=== PATIENT | male | born 2000 | race Caucasian/White ===

== ENCOUNTER 2024-09-13 19:49 | Emergency (ER) | payer OTHER, SELFPAY ==
[2024-09-13 19:51] VITALS: BP 139/80
[2024-09-13 20:25] VITALS: BMI 32.9
--- NOTE | 2024-09-13 20:47 | ED.GENMED ---
History of Present Illness
General
Chief Complaint: Back Pain
Source: patient
Exam Limitations: none
Time Seen by Provider: 09/13/24 20:26
Nursing documentation reviewed up to this point in time: agreed with
History of Present Illness
History of Present Illness:
Patient to ED [facility] complaint of low back pain. Has had pain off and on since 2020. States last week he was at the gym when pain started. He was seen by urgent care and given muscle relaxant and steroid without improvement. He was evaluated by
orthopedist through [facility] this week and physical therapy was recommended. Patient and mother are frustrated that MRI has not been ordered. Pain to bilateral lower back and radiates at times to ant. thighs. Denies any bowel or bladder symptoms.
No weakness in extremities, no saddle paresthesia. No bowel or bladder symptoms. Denies fever/chills,, recent illness. No history of trauma.
Past History
Past History
ED Past Medical History: Other (Ulcers); Negative Asthma, HTN, Hypercholesterolemia or NIDDM
ED Past Surgical History: None
Social History
Tobacco: Non-smoker
Alcohol: Occasional
Drug: Marijuana
Personal: Single
Living: with family
Review of Systems
Review of Systems
Allergies reviewed?: Yes
All Other Systems: ROS reviewed and negative except as documented in HPI and ROS
Constitutional: Reports no symptoms
ABD/GI: Reports no symptoms
Musculoskeletal: Reports back pain (Bilateral lower back)
Skin: Reports no symptoms
Neurological: Reports no symptoms
Psychiatric: Reports no symptoms
Phy Exam
General Physical Exam
General Presentation: well appearing and no apparent distress
General age: appears stated age
General Skin: warm and dry
General Habitus: normal
Reflexes
Reflexes: +3: Left patellar and +3: Right patellar
Musculoskeletal Exam
Musculoskeletal Exam: neuro vasc intact
Skin Exam
Skin Exam: normal color, warm/dry and no rash
Psychiatric Exam
Psychiatric Exam: normal mood/affect
Course
Vital Signs
Initial and Last Documented VS:
Initial Vital Signs
Temp Pulse Resp BP Pulse Ox
97.9 F 70 16 139/80 99
09/13/24 19:51 09/13/24 19:51 09/13/24 19:51 09/13/24 19:51 09/13/24 19:51
Last Documented Vital Signs
Temp Pulse Resp BP Pulse Ox
97.9 F 70 16 139/80 99
09/13/24 19:51 09/13/24 19:51 09/13/24 19:51 09/13/24 19:51 09/13/24 19:51
*Critical Care Note
Total Time (30-74mins, 75-104mins- exclusive of procedures): Not Applicable
Update Note
Update Note:
Patient to ED with complaint of low back pain. He reports intermittent episodes of low back pain since 2020. Pateint and mother are frustrated that further testing with MRI has not been ordered. PT recommended by ortho. ON exam today he has good
strenght bilaterally. Equal strength bilaterally. Ambulates withotu assistance. Pain worse with movement. Recommend finishing out steroid taper, continue NSAIDs. Given number for pain management and for client services specialist. Patient will contact
both and schedule follow up appt. WIll follow up with PCP to schedule outpatient MRI.
ED Attending Note
-
Portions of this chart may have been created with voice recognition software.� Occasional wrong word or��sound alike� substitutions may have occurred due to the inherent limitations of voice recognition software.
Discharge Plan
Departure
Patient Disposition: Home (Routine Discharge)
Date of Disposition: 09/13/24
Time of Disposition: 20:47
Patient with high blood pressure during this ER visit?: No
Condition: Good
Covid-19: Not Applicable
Discharge Problem:
Low back pain
Instructions: Low Back Pain (DC), Ibuprofen
Prescriptions:
New
hydrocodone-acetaminophen 5-325 mg tablet
1 tab PO TID PRN (Reason: Pain) Qty: 10 0RF
No Action
famotidine 20 MG tablet
20 mg PO BID Qty: 28 0RF
Rx Instructions:
Take 20 mg twice a day for 14 days
ascorbic acid (vitamin C) [Vitamin C] 500 MG tablet
1,000 mg PO BID Qty: 56 0RF
Rx Instructions:
Take 1,000 mg twice a day for 14 days
zinc sulfate 220 MG capsule
220 mg PO DAILY Qty: 14 0RF
Rx Instructions:
Take 220 mg daily for 14 days
cholecalciferol (vitamin D3) 1,000 UNITS tablet
2,000 units PO DAILY Qty: 28 0RF
Rx Instructions:
Take 2,000 units daily for 14 days
ibuprofen 600 mg tablet
600 mg PO Q6H PRN (Reason: Pain) Qty: 14 0RF
Referrals:
Venkat Phoenix MD [Active] - Call in 1-3 days for appt
Phong Rde MD [Active] - Call in 1-3 days for appt
Interventions
Interventions:
*Risk Screen - Suicide Last Done: 09/13/24 19:51
*General Assessment Last Done: 09/13/24 20:25
*Neglect/Abuse Screening Last Done: 09/13/24 19:51
ED- Fall Risk Assessment Last Done: 09/13/24 20:25
*ED COVID-19 Vaccine History Last Done: 09/13/24 20:25
*Nursing Disposition Last Done: 09/13/24 21:08
ED-Musculoskeletal Assessment Last Done: 09/13/24 20:26
Discharge Date and Time
Discharge Date/Time: 09/13/24 21:08
Print Language: AMHARIC
Musculoskeletal Injury Exam
Musculoskeletal Injury Exam
Bilateral Lower Back:
Pain with Movement?: Moderate
Tender to palpation?: Moderate
Soft tissue swelling?: None
External deformity and angulation?: None
Joint effusion?: None
Contusion?: None
Hematoma-local bleeding into tissue?: None
Strain- Sprain- Tear (Connective tissue injury)?: Moderate
Crepitus with movement?: No
Joint instability?: No
Malalignment/deformity?: No
Range of motion: Limited
Distal skin color and temperature: normal-warm & good color
Capillary Refill: normal
Normal distal neurovascular exam?: Yes
== END 2024-09-13 21:08 | disposition home or self-care (01) ==
LOC: EMR 19:49
PROVIDERS: EMERGENCY PHYSICIAN Emergency Medicine
DX: M54.50 Low back pain, unspecified (principal)
CPT/HCPCS: 99283

== ENCOUNTER → 2024-10-20 11:04 | Outpatient (REF) | payer OTHER, SELFPAY | LOC: MRI 3T 11:04 | PROVIDERS: ATTENDING PHYSICIAN Family Medicine; FAMILY PHYSICIAN Nurse Practitioner Family | DX: M54.50 Low back pain, unspecified (principal) | CPT/HCPCS: 72148 ==

== ENCOUNTER 2025-08-16 15:33 | Emergency (ER) | payer SELFPAY ==
[2025-08-16 15:40] VITALS: BP 134/95
[2025-08-16 16:30] LABS: Hematocrit 41.9 % (39.0-52.0); Hemoglobin 14.7 g/dL (13.0-18.0); Mean Corp Hgb Conc. 35.1 g/dL (33.0-37.0); Mean Corpuscular Volume 70.5 fL (80.0-94.0); Nucleated Red Blood Cells % 0 % (-); Platelet Count 199 10^3/uL (130-400); Red Cell Dist. Width 14.0 % (11.5-14.5)
[2025-08-16 16:41] LABS: COVID-19 Antigen Negative (Negative)
[2025-08-16 16:47] LABS: ALT (SGPT) 44 U/L (0-50); AST (SGOT) 35 U/L (17-59); Albumin 4.8 g/dl (3.5-5.0); Alkaline Phosphatase 56 U/L (38-126); Blood Urea Nitrogen 12 mg/dl (9-20); Calcium 8.9 mg/dl (8.4-10.2); Carbon Dioxide 25 mmol/L (22-30); Chloride 99 mmol/L (98-107); Glucose 87 mg/dl (70-99); Potassium 3.9 mmol/L (3.5-5.1); Sodium 135 mmol/L (135-145); Total Protein 7.8 g/dl (6.3-8.2); eGFR > 60.00
--- NOTE | 2025-08-16 18:57 | ED.GENMED ---
History of Present Illness
General
Chief Complaint: Cold/Flu/URI Symptoms
Time Seen by Provider: 08/16/25 16:50
History of Present Illness
History of Present Illness:
25-year-old otherwise healthy male presents to the emergency department for evaluation of chills, fatigue, sore throat, and chest pain. Chest pain was more severe yesterday but improved today. Reports mild dry cough but denies any shortness of
breath. Also notes a rash to the palms bilaterally. No ill contacts. Does not have any children. Denies any recent or remote tick bites.
Past History
Past History
ED Past Medical History: Other (Ulcers); Negative Asthma, HTN, Hypercholesterolemia or NIDDM
ED Past Surgical History: None
Social History
Tobacco: Non-smoker
Alcohol: Occasional
Drug: Marijuana
Personal: Single
Living: with family
Review of Systems
Review of Systems
Allergies reviewed?: Yes
All Other Systems: ROS reviewed and negative except as documented in HPI and ROS
Phy Exam
Physical Exam
Physical Exam:
GEN: Well appearing, NAD, WDWN
HEENT: Oral mucosa moist, no scleral icterus, TMs clear bilaterally, oropharynx clear with no oropharyngeal lesions, no tonsillar hypertrophy or exudates
Cardiac: Regular rate and rhythm, no murmur
Lung: No respiratory distress, no tachypnea, lungs clear to auscultation
MSK: No gross deformity or injuries
Skin: Good color, no pallor or jaundice, faint macular lesions to the palms bilaterally and the dorsum of the left hand, no lesions to the feet
Neuro: AO x3, moves all extremities freely
Psych: Calm, cooperative
Course
Orders/Labs/Results
Orders:
Orders
08/16/25 15:44
Electrocardiogram (*1) Urgent
Reason for Study: Chest Pain
EKG- Treatment ONCE
08/16/25 15:52
COVID-19 Antigen Urgent
Source: Nasal Swab
Complete Blood Count/With Diff Urgent
Comprehensive Metabolic Panel Urgent
Influenza A+B Rapid Molecular Urgent
GERMAN Source: Nasal Swab
Specimen Description:
08/16/25 17:37
CR Chest - 2 Views Urgent
Comment:
Reason For Exam: chest pain/fever
Abnormal Lab Results
08/16/25
15:52
MCV 70.5 L fL
(80.0-94.0)
MCH 24.7 L pg
(27.0-31.0)
MPV 11.5 H fL
(7.4-10.4)
Absolute Monos (auto) 1.5 H 10^3/uL
(0.1-0.6)
Monocytes % 19.4 H %
(1.7-9.3)
08/16/25 15:52
08/16/25 15:52
Vital Signs
Initial and Last Documented VS:
Initial Vital Signs
Temp Pulse Resp BP Pulse Ox
98.4 F 99 18 134/95 100
08/16/25 15:40 08/16/25 15:40 08/16/25 15:40 08/16/25 15:40 08/16/25 15:40
Last Documented Vital Signs
Temp Pulse Resp BP Pulse Ox
98.4 F 89 18 142/85 99
08/16/25 15:40 08/16/25 19:00 08/16/25 19:00 08/16/25 19:00 08/16/25 19:00
MDM/Problems Addressed
MDM/Problems Addressed:
The palm lesions are certainly atypical however the patient looks overall well and has normal labs. No subungual hemorrhages or heart murmur concerning for endocarditis. No lesions to the soles of the feet or clinical illness presentation
suggestive of severe disease such as [place] spotted fever or secondary syphilis. He is overall well-appearing and chest x-ray is clear. Likely self-limited viral syndrome, hand lesions likely indicative of enteroviral infection. Discussed
supportive care and strict ED return parameters
Comment
Comment:
EKG independently interpreted by me shows normal sinus rhythm at a rate of [address] changes and a normal QT interval. Chest x-ray independently interpreted by me is negative for acute disease
*Pulse Oximetry
SaO2: 100
Oxygen Mode of Delivery: Room air
Patient hypoxic: no
*Critical Care Note
Total Time (30-74mins, 75-104mins- exclusive of procedures): Not Applicable
ED Attending Note
-
Portions of this chart may have been created with voice recognition software.� Occasional wrong word or��sound alike� substitutions may have occurred due to the inherent limitations of voice recognition software.
Discharge Plan
Departure
Patient Disposition: Home (Routine Discharge)
Date of Disposition: 08/16/25
Time of Disposition: 18:57
Patient with high blood pressure during this ER visit?: No
Discharge Problem:
Acute febrile illness
Instructions: Viral Syndrome (DC)
Prescriptions:
No Action
famotidine 20 MG tablet
20 mg PO BID Qty: 28 0RF
Rx Instructions:
Take 20 mg twice a day for 14 days
ascorbic acid (vitamin C) [Vitamin C] 500 MG tablet
1,000 mg PO BID Qty: 56 0RF
Rx Instructions:
Take 1,000 mg twice a day for 14 days
zinc sulfate 220 MG capsule
220 mg PO DAILY Qty: 14 0RF
Rx Instructions:
Take 220 mg daily for 14 days
cholecalciferol (vitamin D3) 1,000 UNITS tablet
2,000 units PO DAILY Qty: 28 0RF
Rx Instructions:
Take 2,000 units daily for 14 days
ibuprofen 600 mg tablet
600 mg PO Q6H PRN (Reason: Pain) Qty: 14 0RF
hydrocodone-acetaminophen 5-325 mg tablet
1 tab PO TID PRN (Reason: Pain) Qty: 10 0RF
Referrals:
NONE,* [Family Provider, Internal Medicine]
Stand Alone Forms: Return to Work
Activity Restrictions/Additional Instructions:
Your hand lesions are likely caused by a virus; however if they worsen, or begin to involve the fingernails, you need to return to the ER immediately
Your labs and chest x ray show no abnormalities
If you have a fever lasting longer than 5 days, return to the ER for follow up evaluation
Interventions
Interventions:
[facility] Risk Assessment Tool Last Done: 08/16/25 17:41
*Risk Screen - Suicide (C-SSRS) Last Done: 08/16/25 15:40
*Nursing Disposition Last Done: 08/16/25 19:15
ED- Pulmonary Assessment Last Done: 08/16/25 17:40
Discharge Date and Time
Discharge Date/Time: 08/16/25 19:16
Print Language: MARSHALLESE
[2025-08-16 19:00] VITALS: BP 142/85
== END 2025-08-16 19:16 | disposition home or self-care (01) ==
LOC: EMR 15:33
PROVIDERS: EMERGENCY PHYSICIAN Emergency Medicine
DX: R50.9 Fever, unspecified (principal)
CPT/HCPCS: 99284; 71046; 80053; 85025; 87502; 87811; 93005